=== PATIENT | male | born 1950 | race Caucasian/White ===

== ENCOUNTER 2020-04-11 07:45 | Outpatient (CLI) | payer OTHER | END 2020-04-11 08:04 | disposition home or self-care (01) | LOC: RX STUDY 07:45 | PROVIDERS: ATTEND Internal Medicine Gastroenterology | DX: N32.1 Vesicointestinal fistula (principal); R19.5 Other fecal abnormalities; K57.30 Diverticulosis of large intestine without perforation or abscess without bleeding ==